=== PATIENT | female | born 1980 | race Caucasian/White ===

== ENCOUNTER → 2021-07-24 15:00 | Outpatient (CLI) | payer OTHER, SELFPAY ==
--- NOTE | ~2021-07-24 | MR_ITS ---
EXAMINATION: MR MRCP wo/w con/w 3D wo ind DATE: 07/24/2021 15:58 INDICATION: Intraductal pancreatic mucinous neoplasm. TECHNIQUE: Magnetic resonance imaging (MRI) of the abdomen was performed without and with 13 mL Multi hector intravenous contrast. Sequences included coronal T2-weighted SS-FSE, coronal T2-weighted FS SS- FSE, coronal T2-weighted FS FIESTA, axial T2-weighted FS FIESTA, axial T2-weighted FIESTA, sagittal T 2-weighted SS-FSE, axial T1-weighted dual-echo FSPGR, axial T2-weighted SS-FSE, axial T1-weighted LAV A, axial T2-weighted STIR FSE. Thick-slab T2-weighted FRFSE-XL images were obtained for magnetic reso nance cholangiopancreatography (MRCP). Rotating maximum intensity projection 3-D reconstructions of t he volumetric data were created by the technologist. Postcontrast sequences included a time course of axial T1-weighted LAVA. COMPARISON: None. FINDINGS: ABDOMEN MRI: Heart size is normal. No pericardial or pleural effusion. 3-4 mm T2 hyperintense nonenhancing cyst at the dome of the liver. Gallbladder, spleen, bilateral adrenal glands and kidneys are normal. There a re several small T2 hyperintense nonenhancing cystic lesions scattered at the pancreas. These include a couple closely opposed lesions at the tail the pancreas measuring 2-3 mm and 6 mm, 8 x 4 mm lesion at the neck of the pancreas, a 6 x 3 mm lesion at the uncinate process of the pancreas and additiona l closely opposed 9 x 4 mm and 8 x 3 mm lesions at the head of the pancreas. Visualized portion of th e bowels including the appendix are normal. No pathologically enlarged abdominal adenopathy. Normal b one marrow signal throughout. ABDOMEN MRCP: Common bile duct and intrahepatic biliary tree are normal with common bile duct measuring up to 3 mm in maximal diameter and tapers smoothly in the distal duct. No mucosal irregularities, strictures or gallstones. Main pancreatic duct is also normal in diameter and appears to directly communicate with several of the previously noted small cystic lesions. IMPRESSION: 1. Multiple small independent appearing nonenhancing cystic lesions scattered throughout the pancreas . Although differential would include pseudocyst, intraductal papillary mucinous neoplasm (IPMN), muc inous cystic neoplasm (MCN), and the less common serous cystadenoma and neuroendocrine tumor, given t he multiplicity would favor dilated side branches and/or small pseudocysts related to chronic pancrea titis. Correlate for history of prior pancreatitis. Reviewed, dictated and finalized at location A. IMPRESSION: 1. Multiple small independent appearing nonenhancing cystic lesions scattered t hroughout the pancreas. Although differential would include pseudocyst, intradu ctal papillary mucinous neoplasm (IPMN), mucinous cystic neoplasm (MCN), and th e less common serous cystadenoma and neuroendocrine tumor, given the multiplici ty would favor dilated side branches and/or small pseudocysts related to chroni c pancreatitis. Correlate for history of prior pancreatitis.
[2021-07-24 15:25] LABS: Estimated Glomerular Filt Rate > 60
== END ==
DX: D49.0 Neoplasm of unspecified behavior of digestive system (principal)
CPT/HCPCS: 74183; 76376; A9577